=== PATIENT | female | born 1975 | race Caucasian/White ===

== ENCOUNTER 2020-02-29 23:59 | Observation (INO) | payer OTHER ==
[~2020-02-29] VITALS: Ht 157.5 cm; Wt 94.8 kg
[2020-03-01 00:09] VITALS: BP 123/62
[2020-03-01] MEDS ORDERED: FAMOTIDINE 20 M20 MG PO (00:14)
[2020-03-01 01:02] LABS: ABSOLUTE EOSINOPHILS 0.1 thou/uL (0.0-0.7); ABSOLUTE LYMPHOCYTES 1.3 thou/uL (0.8-5.3); ABSOLUTE NEUTROPHILS 8.4 thou/uL (1.6-8.1); BASOPHILS 0.3 %; HEMATOCRIT 38.3 % (37.0-47.0); LYMPHOCYTES 11.7 %; MCH 28.2 pg (26.0-34.0); MCV 82.9 fL (80.0-100.0); MONOCYTES 8.9 %; MPV 7.7 fl. (7.2-11.1); NUCLEATED RBCS 0 /100WBC; PLATELET COUNT* 269 thou/uL (150-400); POLYS 78.1 %; RBC 4.62 mil/uL (4.20-5.00); RDW-CV 14.3 % (10.5-14.5); WBC 10.8 thou/uL (4.0-11.0)
[2020-03-01 01:07] LABS: CALCIUM 9.3 mg/dL (8.5-10.1); CREATININE 0.9 mg/dL (0.6-1.3); POTASSIUM 3.4 mmol/L (3.5-5.1)
[2020-03-01 01:11] LABS: TOTAL BILIRUBIN 0.8 mg/dL (<0.1-1.0); TOTAL PROTEIN 7.2 g/dL (6.4-8.2)
[2020-03-01 01:47] LABS: URINE BILIRUBIN NEGATIVE (Negative); URINE BLOOD NEGATIVE (Negative); URINE CLARITY CLEAR; URINE COLOR YELLOW; URINE GLUCOSE-RANDOM NEGATIVE (Negative); URINE KETONES NEGATIVE (Negative); URINE LEUKOCYTES-REFLEX NEGATIVE (Negative); URINE NITRITE-REFLEX NEGATIVE (Negative); URINE PROTEIN NEGATIVE (Negative); URINE SPECIFIC GRAVITY 1.025 (1.005-1.030); URINE UROBILINOGEN 0.2 E.U./dl (0.2-1.0)
[2020-03-01] MEDS ORDERED: LIVER DETOX (02:00)
[2020-03-01 04:20] VITALS: BP 119/70
[2020-03-01 04:39] VITALS: BP 138/63
[2020-03-01 07:30] VITALS: BP 114/52
[2020-03-01 07:44] LABS: CALCIUM 9.5 mg/dL (8.5-10.1); CREATININE 0.9 mg/dL (0.6-1.3); POTASSIUM 3.4 mmol/L (3.5-5.1)
[2020-03-01 07:47] LABS: MAGNESIUM 1.6 mg/dL (1.8-2.4); PHOSPHORUS* 3.4 mg/dL (2.5-4.9)
[2020-03-01 16:25] VITALS: BP 120/76
[2020-03-01 20:00] VITALS: BP 120/70
[2020-03-02 00:15] VITALS: BP 120/70
[2020-03-02 04:57] LABS: MAGNESIUM 2.2 mg/dL (1.8-2.4); POTASSIUM 3.8 mmol/L (3.5-5.1)
[2020-03-02 06:07] VITALS: BP 114/69
[2020-03-02 09:50] VITALS: BP 102/57
[2020-03-02 10:25] VITALS: BP 102/57
--- NOTE | 2020-03-04 09:26 | OP ---
[address] [address] OPERATIVE REPORT Name: LYLEALANA Room: [address] Luz Marina Ochoa#: [id number] Admission: 03/01/20 Attend Phys: Davide Su MD Discharge: 03/02/20 Date of : 73 Report #: [id number] THIS REPORT FOR: //name// cc: CHANEL CARMONA MD, CHADWICK MD ~ CC: Davide Carmona MD DICTATED BY: Sushila Taveras DO DATE OF SERVICE: 03/02/2020 PREOPERATIVE DIAGNOSIS: Acute cholecystitis with cholelithiasis. POSTOPERATIVE DIAGNOSES: Acute cholecystitis with cholelithiasis plus incisional hernia. PRIMARY SURGEON: Lillian Nelson DO LANGUAGE SPECIALIST: Sushila Taveras DO, PGY3 SECOND ESTATE MANAGER: Sam Carson MS4 OPERATION PERFORMED: Laparoscopic cholecystectomy and primary repair of incisional hernia. ANESTHESIA: General, local and TAP block. ESTIMATED BLOOD LOSS: 10 mL. SPECIMEN: Gallbladder. INDICATIONS FOR PROCEDURE: The patient is a pleasant 44-year-old female that presented to the Emergency Department early in the morning on 03/01/2020 with complaint of abdominal pain. Pain was mostly in the epigastric region, which radiated to her back. No previous episodes of pain like this. She did have some symptoms of reflux and bloating with fatty foods. A workup was completed, which included an ultrasound that showed cholelithiasis with some sludge in the gallbladder. There was a stone as large as 2.8 cm. The gallbladder was also noted to be distended. It was recommended that she undergo a laparoscopic cholecystectomy. The procedure, risks, benefits, possible complications to include bleeding, infection, injury to surrounding structures, need for open procedure, need for additional surgery, bile leak, injury to the bile duct, risks of anesthesia, and other risks of surgery were discussed with the patient in great detail. She voiced complete understanding [id number] OPERATIVE REPORT Name: ALANA ALVARENGA Room: [address] Luz Marina Ochoa#: [id number] Admission: 03/01/20 Attend Phys: Davide Su MD Discharge: 03/02/20 Date of : 73 Report #: [id number] surgery. DESCRIPTION OF PROCEDURE: Informed consent was obtained. The patient was taken to the operating room and placed supine on the operating room table. General endotracheal anesthesia was induced without difficulty. SCDs were placed on bilateral lower extremities. Preoperative antibiotics were given. The abdomen was prepped and draped in the standard sterile fashion. A timeout was performed to ensure correct patient and procedure. Approximately 10 mL of 0.5% Marcaine were injected into the infraumbilical region. A 3 cm infraumbilical horizontal incision was made using a #11 blade scalpel. The incision was carried down through the subcutaneous tissues using electrocautery. We did encounter a small fat containing incisional hernia. This was dissected free from all surrounding tissues down to the level of fascia. Fascia was grasped with a Arthur. The hernia sac and fat within the hernia was unable to be reduced, so this was transected using electrocautery. The fascial defect was then extended inferiorly using electrocautery to accommodate our 12 mm Surinder trocar. A finger sweep was performed. We had not quite entered the peritoneum yet. Peritoneum was entered bluntly just using a finger. Then, 0 Vicryl stay sutures were placed on either side of our fascial opening. A 12 mm Surinder trocar was inserted through the fascial opening. Abdomen was insufflated without difficulty. Laparoscopic camera was inserted and a sweep of the anterior abdominal contents was performed. Gallbladder was visualized immediately appeared distended and acutely inflamed. There were also some Lgjm-Tgwn-Wtllsj adhesions noted in the right upper quadrant from the liver to the abdominal wall. There is also a fair amount of inflammatory fluid. She has a previous right lower quadrant abdominal incision from previous surgery. There were some adhesions noted in this area as well inferior to the umbilicus. The patient was placed in the reverse Trendelenburg position with the left side down. A subxiphoid 5 mm trocar was inserted under direct visualization. Two right upper quadrant 5 mm trocars were inserted under direct visualization. The gallbladder was so distended, we were unable to grasp it. An aspiration needle was used to aspirate approximately 20-30 mL of bile from the gallbladder. This decompressed it quite a bit, so that we were able to easily grasp it. The general office assistant grasped the fundus of the gallbladder and retracted it superiorly and anteriorly. Marquez's pouch was grasped. There were some fatty adhesions overlying this area. These were gently taken down using mostly blunt dissection. A small amount of electrocautery. Once the gallbladder was freed from all of the surrounding adhesions, suction manager nc was used to bluntly dissect the cystic duct and cystic artery free from all the surrounding tissues. The artery was immediately easily identified in a slightly more anterior position than typical. The cystic duct was identified. It appeared slightly dilated. Suction manager nc was used to completely free the cystic duct from surrounding tissues. A [place] dissector was also used to bluntly dissect a window behind both the cystic duct and cystic artery. Once both these structures were freed from all the surrounding tissues, the critical view of safety was achieved. There were 2 and only two structures were seen coursing into the gallbladder. The [address] [address] OPERATIVE REPORT Name: LYLEALANA Room: [address] Luz Marina Ochoa#: [id number] Admission: 03/01/20 Attend Phys: Davide Su MD Discharge: 03/02/20 Date of : 73 Report #: [id number] plate was visualized. A clip health and safety advisor was used to doubly clip both the cystic duct and cystic artery. Both the duct and artery were transected using laparoscopic scissors. The gallbladder was removed from the liver bed using electrocautery. Gallbladder was then placed in the EndoCatch bag. Liver edge was re-elevated and inspected. The liver bed appeared hemostatic. Suction manager nc was used to irrigate the right upper quadrant. The adhesions from the surface of the liver to the abdominal wall were gently taken down using electrocautery. The patient was flattened out. The 5 mm trocars were removed under direct visualization. Abdomen was desufflated without difficulty. The 12 mm Surinder trocar was removed as well as the gallbladder within the EndoCatch bag. The gallbladder was still distended and full of stones, we did have to extend our fascial opening slightly just inferiorly using heavy curved Mayos. The fascia at the infraumbilical incision was grasped between 2 Kochers. Previously placed stay sutures were removed. The fascial opening was closed using 0 Vicryl suture in a etsglb-tj-tzxtl fashion. The skin was closed using 4-0 Monocryl suture in a running subcuticular fashion. The 5 mm trocar sites were closed using 4-0 Monocryl suture in a simple interrupted and inverted fashion. Approximately 30 mL of 0.5% Marcaine were used for local anesthesia. The skin was cleansed and dried. Dermabond was applied to each incision. At the conclusion of the case, anesthesia then performed a TAP block. The patient tolerated the procedure very well. She was allowed to awaken in the operating room and was transferred to the PACU in stable condition with plans to return to the floor and potentially discharge home later today. <ELECTRONICALLY SIGNED> By: Lillian Nelson DO 03/04/20 [id number] [id number] Nelson DO /megan
--- NOTE | 2020-03-04 14:07 | PATH ---
[address] [address] PATHOLOGY RPT PROCEDURE Name: ALANA MONSALVE Room: [address] Gabriela#: [id number] Admission: 03/01/20 Date of : 73 Discharge: 03/02/20 Report #: [id number] Path Case #: [id number] [facility] Accession Number: [id number] . 01 Material submitted: . gallbladder - GALLBLADDER AND CONTENTS . 01 Clinical history: . BILIARY COLIC WITH ABDOMINAL PAIN; ACUTE CHOLECYSTITIS AND CHOLELITHIASIS . 02 Diagnosis: Gallbladder and contents: - Chronic and acute erosive cholecystitis and cholelithiasis. (YASMANI/db; 03/04/2020) LBQ 03/04/2020 1245 Local . 02 Electronically signed: . Ignacio Ying MD, Pathologist NPI- [id number] . 01 Gross description: . The specimen is received in formalin, labeled "Alana Monsalve", "gallbladder and contents". Received is an intact gallbladder measuring 8.5 x 4.2 x 2.5 cm. The external surface is wrinkled, shiny and pale cdtq-iqng-cuy. Opening the gallbladder reveals a dark green-dark williamson, spongy, bile stained mucosa with no polypoid adhesions or solid masses identified. The gallbladder wall ranges in thickness from 0.1 cm to 0.3 cm. Calculi are present in the gallbladder and range in size from 0.2 cm to 2.8 cm. Expanded Function Dental Assistant sections are submitted in cassette A1.(SNA; 03/03/2020) YESSICA/FALLON 03/04/2020 1244 Local . 02 Pathologist provided ICD-10: K80.12 . 02 CPT . 438467 Specimen Comment: A courtesy copy of this report has been sent to [phone], [phone] Specimen Comment: [phone], Specimen Comment: Report sent to ,DR CARMONA / DR BARRON Performed at: [address] [facility] [id number] MD Flex Quintero MD Phone: [phone] Performed at: [address] [place], [place] [id number] [place] [address] PATHOLOGY RPT PROCEDURE Name: RUDI MONSALVETHERESE Ely Room: [address] Luz Marina Ochoa#: [id number] Admission: 03/01/20 Date of : 73 Discharge: 03/02/20 Report #: [id number] Path Case #: [id number] [facility] Phone: [phone]
== END 2020-03-02 12:33 | disposition home or self-care (01) ==
LOC: M.ERS 23:59 → M.3W 03-01 03:27 → M.TBA-ER 03-01 03:27 → M.3W 03-01 04:18
PROVIDERS: Internal Medicine; Personal Emergency Response Attendant; ADMIT Internal Medicine; ATTEND Internal Medicine
DX: K80.62 Calculus of gallbladder and bile duct with acute cholecystitis without obstruction (principal); K43.2 Incisional hernia without obstruction or gangrene; R07.89 Other chest pain; Z79.899 Other long term (current) drug therapy; Z20.828 Contact with and (suspected) exposure to other viral communicable diseases